=== PATIENT | male | born 1965 | race Asian ===

== ENCOUNTER 2018-08-16 17:15 | Inpatient (IN) | payer BC ==
[~2018-08-16] VITALS: Ht 157.5 cm; Wt 65.8 kg
--- NOTE | ~2018-08-16 | OP ---
PATIENT NAME: SURYA CEBALLOS MEDICAL RECORD: [id number] :61 LOCATION:D.MS [id number] ADMISSION DATE:08/16/18 SURGEON: YCNTHIA DAS MD DATE OF OPERATION: 08/25/2018 PROCEDURE: Transesophageal note. After general sedation via TIVA anesthesia, transesophageal Omniplane probe was placed down the distal esophagus and proximal stomach without difficulty. FINDINGS: No LVH. LV internal dimension is normal. Wall motion normal. EF is greater than or equal to 55%. Aortic valve is well visualized. Tricuspid with good valve excursion and no evidence of vegetation. No AI is noted. Left atrium appears normal. Left atrial appendage is well visualized with good contractility and no evidence of thrombus. Mitral valve is well visualized, this is a normal structure with no evidence of vegetation. Right-sided chambers appear normal. Tricuspid valve is normal with no evidence of vegetation. Pulmonic valve is well visualized with no evidence of vegetation. At the end of the procedure, the probe was turned posteriorly and this showed no atherosclerotic debris in the descending aorta. TRANSINT:[id number] Voice Confirmation ID: [id number] DOCUMENT ID: [id number] CYNTHIA DAS MD at 1135 CC: [id number] DICTATION DATE: 08/25/18 140 FAMILY LAW SPECIALIST: 08/25/18 1418 ADM IN [place] [id number] [place] [address]
--- NOTE | ~2018-08-16 | EC ---
PATIENT:SURYA CEBALLOS DATE OF SERVICE: 08/16/18 SEX: M MEDICAL RECORD: [id number] DATE OF : 61 LOCATION:D.MS [facility] AGE OF PATIENT: 52 ADMISSION DATE: 08/16/18 REFERRING PHYSICIAN: INTERPRETING PHYSICIAN: JENNY PEPPER MD ECHOCARDIOGRAM REPORT ECHO CHARGES 4 ECHO COMPLETE Date: 08/23/18 CLINICAL DIAGNOSIS: ASSESS FOR ENDOCARDITIS ECHOCARDIOGRAPHIC MEASUREMENTS (adult normal given) AC root (d.<3.7cm) 3.5 cm LV Septum d (<1.2 cm> 1.2 cm Valve Excursion 1.5 cm LV Septum (systole) 1.4 cm Left Atria (s.<4.0cm> 4.0 cm LVPW d(<1.2cm) 1.6 cm RV (d.<2.3cm) 3.4 cm LVPW (sytole) 1.7 cm LV diastole(<5.6CM) 5.4 cm MV E-F(>70mm/sec) cm LV systole 4.1 cm LVOT Diameter 1.7 cm MV exc.(>10mm) 1.2 cm Est.ejection fraction (50-75%) % DOPPLER: LVIT cm/sec A 101 cm/sec E 87.0 cm/sec LA cm/sec RVSP 46 mmHg LVOT 92 cm/sec AOP1/2T m/s Asc. Ao 154 cm/sec RVOT 102 cm/sec RA cm/sec PA 151 cm/sec AV Gradient Peak 9.52 mmHg AV Mean 5.17 mmHg AV Area 1.4 cm MV Gradient Peak 4.30 mmHg MV Mean 1.79 mmHg MV Area cm COMMENTS: Broommaker: Laura MC Sports Bookmaker: Naeem Yeung TAPE# PACS Pericardial Effusion N DATE OF SERVICE: 08/23/2018 FINDINGS: 1. Left ventricular chamber size is within normal limits. Left ventricular systolic function is normal. Overall ejection fraction estimated at 60%. 2. Left atrium, right atrium, right ventricular chamber sizes are within normal limits. 3. Valvular structures have normal structure and motion. 4. Doppler interrogation reveals trace mitral regurgitation, mild tricuspid regurgitation, no other valvular insufficiency or stenosis. Pulmonary systolic ECHOCARDIOGRAM REPORT [id number] SURYA CEBALLOS pressure is estimated at 46 mmHg. 5. No evidence of pericardial effusion or left ventricular thrombus. 6. No evidence of vegetative endocarditis. TRANSINT:[id number] Voice Confirmation ID: [id number] DOCUMENT ID: [id number] JENNY PEPPER MD at 0924 CC: [id number] DICTATION DATE: 08/24/18 1137 CHICKEN HANGER: 08/24/18 1159 DIS IN 08/26/18 [place] [id number] [place] [id number]
--- NOTE | ~2018-08-16 | HEMODYNAMI ---
PATIENT:SURYA CEBALLOS MEDICAL RECORD: [id number] : 61 LOCATION:D.MS Wade2234 ADMISSION DATE: 08/16/18 Generatedon:08/25/201814:15 Patient name: SURYA CEBALLOS Patient #: [id number] SSN: : 1965 Date of study: 08/25/2018 Page: Of Hemodynamic Procedure Report Patient Data Patient Demographics Procedure consent was obtained First Name: SURYA Gender: Male Last Name: LIN : 1965 Patient #: [id number] Age: 52 year(s) Race: Unknown Additional ID: [id number] Contact details Address: [place] [address] State: [place] City: [place] Zip code: [address] Past Medical History Allergies Allergen Reaction Date Comments Reported Other allergy 08/25/2018 DENNISE galindo Admission Admission Data Admission Date: 08/16/2018 Admission Time: 22:14 Admit Source: Other Room #: D.2234 Lab Results Lab Result Date: 08/25/2018 Lab Result Time: 3:55 Biochemistry Name Units Result Min Max BUN mg/dl 9 --(*---)-- 7 18 Creatinine mg/dl 0.8 --(-*--)-- 0.6 1.3 CBC Name Units Result Min Max Hematocrit % 28.7 *-(----)-- 42 54 Hemoglobin g/dl 9.8 *-(----)-- 13.5 17.5 Procedure Procedure Types Cath Procedure Diagnostic Procedure DEE Procedure Description Procedure Date Procedure Date: 08/25/2018 Procedure Start Time: 14:09 Procedure End Time: 14:10 Procedure Staff Name Function Juan Antonio Cordon MD Performing Physician Noel Jimenez RT Monitor Jaleel Rainey RT Boatswains Mate Carlos Saenz RN Nurse Allison Bennett RN Nurse Riaz Carrillo CRNA Additional personnel Taurus Stevenson Conference Reservationist Procedure Data Cath Procedure Fluoroscopy Diagnostic fluoroscopy Total fluoroscopy Time: 0 time: 0 min min Diagnostic fluoroscopy Total fluoroscopy dose: 0 dose: 0 mGy mGy Contrast Material Contrast Material Type Amount (ml) Isovue 300 0 Estimated blood loss: 0 ml Procedure Complications No complications Procedure Medications Medication Administration Route Dosage Oxygen etCO2 Nasal cannula 2 l/min Hurricaine Minier P.O. 1 Sprays Refer to Anesthesia Notes for Sedation Medications Hemodynamics Rest HGB: 9.8 (g/dl) Heart Rate: 90 (bpm) Snapshots Pre Cath Intra NCS Post Cath Vital Signs Time Heart Resp SPO2 etCO2 NIBP (mmHg) Rhythm Pain Sedation Rate (ipm) (%) (mmHg) Status Level (bpm) 13:30:05 84 18 97 0 143/80(111) NSR 0 (11) 10(A) , No pain 13:34:22 85 15 97 0 128/77(106) NSR 0 (11) 10(A) , No pain 13:38:31 88 12 98 0 123/78(100) NSR 0 (11) 10(A) , No pain 13:42:45 85 10 98 0 137/60(105) NSR 0 (11) 10(A) , No pain 13:46:57 85 17 99 38.3 134/78(111) NSR 0 (11) 10(A) , No pain 13:51:07 86 15 100 30.8 146/86(126) NSR 0 (11) 8(A) , No pain 13:55:21 86 18 100 33.8 139/82(112) NSR 0 (11) 8(A) , No pain 13:59:35 96 15 100 13.5 99/72(82) NSR 0 (11) 9(A) , No pain 14:03:41 83 20 100 0 101/60(79) NSR 0 (11) 9(A) , No pain 14:08:21 87 23 100 30.7 104/67(78) NSR 0 (11) 10(A) , No pain Medications Time Medication Route Dose Verified Delivered Reason Notes Effectiv eness by by 13:46:32 Oxygen etCO2 2 Juan Antonio Gonzalez used for Nasal l/min [facility] Heriberto Saenz RN procedure cannula 13:46:42 Hurricaine P.O. 1 Juan Antonio Gonzalez Per Minier Sprays St Heriberto Saenz RN physician 13:46:46 Refer to Juan Antonio Gonzalez Anesthesia St Heriberto Saenz RN Notes for MD Sedation Medications Procedure Log Time Note 12:58:25 Informed consent obtained and on chart 12:58:36 Admit Source: Other 12:59:36 H&P Date Dictated: 08/16/2018 Within 30 days and on chart.. 13:00:15 Lab Result : Creatinine 0.8 mg/dl 13:00:15 Lab Result : BUN 9 mg/dl 13:00:15 Lab Result : Hematocrit 28.7 % 13:00:15 Lab Result : Hemoglobin 9.8 g/dl 13:00:22 Lab results completed and on chart. 13:00:35 Time tracking: Regular hours (M-F 7:00 - 5:00) 13:00:39 Plan of Care:Hemodynamics will remain stable., Cardiac rhythm will remain stable., Comfort level will be maintained., Respiratory function will remain adequate., Patient/ family verbilizes understanding of procedure., Procedure tolerated without complication., Recovers from procedure without complications.. 13:11:36 Jaleel STONER(R) sent for patient. Start room use. 13:25:32 Patient arrived from Med/Surg to CCL 2. Patient remains on bed/stretcher for procedure. 13:25:34 Warm blankets applied, and meghann hugger turned on for patient comfort. 13:25:34 Correct patient and procedure confirmed by team. 13:25:35 ECG and BP/O2 sat monitors applied to patient. 13:28:56 Vital chart was started 13:31:25 Baseline sample Acquired. 13:31:30 Rhythm: sinus rhythm 13:31:45 Pre-procedure instructions explained to patient. 13:31:45 Pre-op teaching completed and patient verbalized understanding. 13:31:47 Family unavailable. 13:31:48 Patient NPO since Midnight. 13:32:25 Patient allergic to Other allergyadvil, ASA 13:32:28 Is the patient allergic to Iodine/contrast media? No. 13:32:30 Is patient on blood thinner?No 13:33:40 Patient diabetic? Yes. 13:34:31 If diabetic: On Metformin? No 13:34:37 Previous problem with sedation/anesthesia? No ? 13:34:38 Snore? No 13:34:39 Sleep apnea? No 13:34:40 Deviated septum? No 13:34:40 Opens mouth fully? Yes 13:34:41 Sticks out tongue? Yes 13:34:43 Airway obstruction? No ? 13:34:45 Dentures? No ? 13:35:17 IV patent on arrival in Lt subclavian with 0.9% NaCl at KVO. 13:35:34 Riaz Carrillo CRNA present and monitoring patient for TIVA. 13:40:13 Taurus Stevenson Set Up Mechanic Stamping Machines present for DEE. 13:46:32 Oxygen 2 l/min etCO2 Nasal cannula was administered by Carlos Saenz RN; used for procedure; 13:46:42 Hurricaine Minier 1 Sprays P.O. was administered by Carlos Saenz RN; Per physician; 13:46:46 Refer to Anesthesia Notes for Sedation Medications was administered by Carlos Saenz RN; ; 13:47:51 Alarms reviewed by Kulwant N. 13:47:52 Physician arrived 13:47:53 --------ALL STOP TIME OUT------ 13:47:53 Final Timeout: patient, procedure, and site verified with staff and physician. All members of the team are in agreement. 13:48:10 Physical assessment completed. ASA score P 2 - A patient with mild systemic disease as per Juan Antonio Cordon MD. 13:48:14 Sedation plan: TIVA Medication:Propofol 13:59:09 Full Disclosure recording started 13:59:09 Procedure started. 13:59:10 DEE started. 14:02:49 DEE completed. 14:03:47 Procedure ended.(Physican Out) 14:04:01 Fluoroscopy time 00.00 minutes. 14:04:03 Fluoroscopy dose: 0 mGy 14:04:03 Flurop Dose total: 0 14:04:06 Contrast amount:Isovue 300 0ml. 14:04:21 Post-procedure physical assessment completed. ASA score P 2 - A patient with mild systemic disease as per Juan Antonio Cordon MD. 14:04:30 Post procedure rhythm: unchanged. 14:04:33 Estimated blood loss: 0 ml 14:04:34 Post procedure instruction explained to patient.Patient verbalizes understanding. 14:04:34 Patient needs reinforcement of post procedure teaching. 14:04:50 Procedure and supply charges have been captured, reviewed, submitted and are correct. 14:04:52 Procedure Complication : No complications 14:08:47 Vital chart was stopped 14:08:47 See physician's report for complete and final results. 14:08:51 Report given to Med/Surg. 14:08:53 Patient transfered to Med/Surg with Stretcher. 14:10:14 Procedure ended. 14:10:14 Full Disclosure recording stopped 14:10:32 End room use (Document Last) Signature Audit [place] Stage Time Signature Unsigned Intra-Procedure 08/25/2018 Noel Jimenez 2:15:40 PM RT(R) Signatures Monitor : Noel Jimenez RT Signature : Date : Time : [address] [place] [address]
[2018-08-17 04:00] VITALS: BP 140/87
[2018-08-17 04:13] VITALS: BP 149/50; BMI 26.6
[2018-08-17 07:39] LABS: BASOPHILS 0.2 % (0-2); EOSINOPHILS 0.4 % (0-7); HEMATOCRIT 34.7 % (42.0-54.0); HEMOGLOBIN 11.8 g/dL (13.5-17.5); IMMATURE GRANULOCYTES 0.3 % (0-5); LYMPHOCYTES 5.2 % (15-50); MCH 29.6 pg (26.0-34.0); MCV 87.2 fL (80.0-100.0); MEAN PLATELET VOLUME 9.1 fL (7.4-10.4); MONOCYTES 8.8 % (2-11); NEUTROPHILS 85.1 % (40-80); PLATELET COUNT 388 10x3/uL (130-400); RBC 3.98 10x6/uL (4.20-6.10); RDW 13.3 % (11.5-14.5); WBC 15.7 10x3/uL (4.8-10.8)
[2018-08-17 07:55] LABS: ANION GAP 19.8 mmol/L (8-16); CALCIUM 8.3 mg/dL (8.5-10.1); CARBON DIOXIDE 20.3 mmol/L (21.0-32.0); CREATININE - SERUM 1.3 mg/dL (0.6-1.3); POTASSIUM - SERUM 4.1 mmol/L (3.5-5.1); VANCOMYCIN - RANDOM 14.4 ug/mL (10.0-20.0)
[2018-08-17 09:13] VITALS: BP 173/86
[2018-08-17 11:40] VITALS: BP 155/85
[2018-08-17 13:21] VITALS: BMI 26.5
[2018-08-17 16:45] VITALS: BP 142/83
[2018-08-17 18:39] LABS: APPEARANCE CLEAR (CLEAR); COLOR YELLOW (YELLOW); GLUCOSE 250 mg/dL (NEGATIVE); NITRITE NEGATIVE (NEGATIVE); PROTEIN 1+ mg/dL (NEGATIVE); SPECIFIC GRAVITY 1.015 (1.005-1.020)
[2018-08-17 18:40] LABS: BILIRUBIN NEGATIVE (NEGATIVE); KETONE SMALL mg/dL (NEGATIVE); UROBILINOGEN NORMAL (NORMAL)
[2018-08-17 18:41] LABS: BACTERIA FEW /hpf (NONE SEEN); RED CELLS - URINE 0-5 /hpf (0-5)
[2018-08-17 20:00] VITALS: BP 180/91
[2018-08-18 04:00] VITALS: BP 153/90
[2018-08-18 04:44] LABS: BASOPHILS 0.1 % (0-2); EOSINOPHILS 0.1 % (0-7); HEMATOCRIT 27.5 % (42.0-54.0); HEMOGLOBIN 9.5 g/dL (13.5-17.5); IMMATURE GRANULOCYTES 0.5 % (0-5); LYMPHOCYTES 11.3 % (15-50); MCH 29.8 pg (26.0-34.0); MCHC 34.5 g/dL (31.0-37.0); MCV 86.2 fL (80.0-100.0); MONOCYTES 7.5 % (2-11); NEUTROPHILS 80.5 % (40-80); PLATELET COUNT 370 10x3/uL (130-400); RBC 3.19 10x6/uL (4.20-6.10); RDW 13.4 % (11.5-14.5); WBC 14.9 10x3/uL (4.8-10.8)
[2018-08-18 05:01] LABS: APTT 44.4 SECONDS (22.8-39.4); INR 1.3 (0.85-1.17); PROTIME 15.8 SECONDS (11.6-15.0)
[2018-08-18 05:07] LABS: ALBUMIN 1.1 g/dL (3.4-5.0); ANION GAP 17.3 mmol/L (8-16); BILIRUBIN - TOTAL 0.54 mg/dL (0.2-1.3); CALCIUM 7.7 mg/dL (8.5-10.1); CARBON DIOXIDE 19.9 mmol/L (21.0-32.0); CREATININE - SERUM 1.3 mg/dL (0.6-1.3); POTASSIUM - SERUM 4.2 mmol/L (3.5-5.1); PROTEIN - SERUM 5.7 g/dL (6.4-8.2)
[2018-08-18 09:20] VITALS: BP 145/77
[2018-08-18 20:00] VITALS: BP 129/85
[2018-08-19 04:00] VITALS: BP 98/42
[2018-08-19 05:58] LABS: ALBUMIN 1.3 g/dL (3.4-5.0); ALKALINE PHOSPHATASE 237 U/L (46-116); BILIRUBIN - TOTAL 0.82 mg/dL (0.2-1.3); CALCIUM 8.3 mg/dL (8.5-10.1); CARBON DIOXIDE 24.7 mmol/L (21.0-32.0); CHLORIDE - SERUM 101 mmol/L (98-107); POTASSIUM - SERUM 3.7 mmol/L (3.5-5.1); SODIUM 136 mmol/L (136-145); UREA NITROGEN 14 mg/dL (7-18); eGFR NON AFRICAN AMERICAN 83 mL/min (90-120)
[2018-08-19 06:09] LABS: CALC OSMOLALITY 273 mosm/kg (275-300); GLUCOSE 112 mg/dL (74-106)
[2018-08-19 06:10] LABS: ALT (SGPT) 114 U/L (10-68)
[2018-08-19 06:14] LABS: BASOPHILS 0.1 % (0-2); HEMATOCRIT 32.8 % (42.0-54.0); HEMOGLOBIN 11.1 g/dL (13.5-17.5); IMMATURE GRANULOCYTES 0.5 % (0-5); MCH 29.5 pg (26.0-34.0); MCHC 33.8 g/dL (31.0-37.0); MCV 87.2 fL (80.0-100.0); MEAN PLATELET VOLUME 9.7 fL (7.4-10.4); MONOCYTES 9.7 % (2-11); NEUTROPHILS 82.7 % (40-80); RBC 3.76 10x6/uL (4.20-6.10); RDW 13.5 % (11.5-14.5); WBC 13.4 10x3/uL (4.8-10.8)
[2018-08-19 06:15] LABS: PLATELET COUNT 503 10x3/uL (130-400)
[2018-08-19 08:15] VITALS: BP 132/92
[2018-08-19 13:20] VITALS: BP 161/87
[2018-08-19 16:21] VITALS: BP 129/94
[2018-08-20 04:54] VITALS: BP 132/61
[2018-08-20 05:54] LABS: BASOPHILS 0.2 % (0-2); HEMATOCRIT 32.2 % (42.0-54.0); HEMOGLOBIN 11.1 g/dL (13.5-17.5); IMMATURE GRANULOCYTES 0.4 % (0-5); LYMPHOCYTES 8.5 % (15-50); MCH 29.8 pg (26.0-34.0); MCHC 34.5 g/dL (31.0-37.0); MCV 86.3 fL (80.0-100.0); MEAN PLATELET VOLUME 9.5 fL (7.4-10.4); MONOCYTES 9.8 % (2-11); NEUTROPHILS 80.1 % (40-80); PLATELET COUNT 498 10x3/uL (130-400); RBC 3.73 10x6/uL (4.20-6.10); RDW 13.4 % (11.5-14.5); WBC 10.1 10x3/uL (4.8-10.8)
[2018-08-20 06:10] LABS: ALBUMIN 1.2 g/dL (3.4-5.0); ALKALINE PHOSPHATASE 189 U/L (46-116); ALT (SGPT) 104 U/L (10-68); BILIRUBIN - TOTAL 0.53 mg/dL (0.2-1.3); CALC OSMOLALITY 273 mosm/kg (275-300); CALCIUM 8.3 mg/dL (8.5-10.1); CARBON DIOXIDE 19.6 mmol/L (21.0-32.0); CHLORIDE - SERUM 100 mmol/L (98-107); GLUCOSE 247 mg/dL (74-106); POTASSIUM - SERUM 4.1 mmol/L (3.5-5.1); PROTEIN - SERUM 6.2 g/dL (6.4-8.2); SODIUM 132 mmol/L (136-145); UREA NITROGEN 16 mg/dL (7-18); eGFR NON AFRICAN AMERICAN 83 mL/min (90-120)
[2018-08-20 08:28] VITALS: BP 149/92
[2018-08-20 12:09] VITALS: BP 142/88
[2018-08-20 15:31] VITALS: BP 138/86
[2018-08-20 21:47] VITALS: BP 151/80
[2018-08-21 06:13] VITALS: BP 162/79
[2018-08-21 06:27] LABS: BASOPHILS 0.3 % (0-2); EOSINOPHILS 1.9 % (0-7); HEMATOCRIT 32.1 % (42.0-54.0); HEMOGLOBIN 10.8 g/dL (13.5-17.5); IMMATURE GRANULOCYTES 0.7 % (0-5); LYMPHOCYTES 12.2 % (15-50); MCH 29.1 pg (26.0-34.0); MCHC 33.6 g/dL (31.0-37.0); MCV 86.5 fL (80.0-100.0); MEAN PLATELET VOLUME 9.3 fL (7.4-10.4); MONOCYTES 9.8 % (2-11); NEUTROPHILS 75.1 % (40-80); PLATELET COUNT 513 10x3/uL (130-400); RBC 3.71 10x6/uL (4.20-6.10); RDW 13.4 % (11.5-14.5)
[2018-08-21 06:29] LABS: WBC 7.4 10x3/uL (4.8-10.8)
[2018-08-21 06:47] LABS: ALBUMIN 1.1 g/dL (3.4-5.0); ALKALINE PHOSPHATASE 142 U/L (46-116); ALT (SGPT) 82 U/L (10-68); BILIRUBIN - TOTAL 0.38 mg/dL (0.2-1.3); CALC OSMOLALITY 278 mosm/kg (275-300); CALCIUM 8.2 mg/dL (8.5-10.1); CARBON DIOXIDE 25.7 mmol/L (21.0-32.0); CHLORIDE - SERUM 102 mmol/L (98-107); CREATININE - SERUM 0.8 mg/dL (0.6-1.3); GLUCOSE 175 mg/dL (74-106); POTASSIUM - SERUM 3.7 mmol/L (3.5-5.1); PROTEIN - SERUM 5.7 g/dL (6.4-8.2); SODIUM 138 mmol/L (136-145); UREA NITROGEN 11 mg/dL (7-18); eGFR NON AFRICAN AMERICAN > 90 mL/min (90-120)
[2018-08-21 08:48] VITALS: BP 171/95
[2018-08-21 15:26] VITALS: BP 142/82
[2018-08-21 22:06] VITALS: BP 167/98
[2018-08-22 04:34] VITALS: BP 164/90
[2018-08-22 06:39] LABS: BASOPHILS 0.3 % (0-2); EOSINOPHILS 1.5 % (0-7); HEMATOCRIT 28.3 % (42.0-54.0); HEMOGLOBIN 9.6 g/dL (13.5-17.5); IMMATURE GRANULOCYTES 0.8 % (0-5); LYMPHOCYTES 13.3 % (15-50); MCH 29.1 pg (26.0-34.0); MCHC 33.9 g/dL (31.0-37.0); MCV 85.8 fL (80.0-100.0); MEAN PLATELET VOLUME 8.9 fL (7.4-10.4); MONOCYTES 10.8 % (2-11); NEUTROPHILS 73.3 % (40-80); PLATELET COUNT 479 10x3/uL (130-400); RDW 13.3 % (11.5-14.5); WBC 7.3 10x3/uL (4.8-10.8)
[2018-08-22 07:10] LABS: ALBUMIN 1.2 g/dL (3.4-5.0); ALKALINE PHOSPHATASE 124 U/L (46-116); ALT (SGPT) 64 U/L (10-68); BILIRUBIN - TOTAL 0.28 mg/dL (0.2-1.3); CALC OSMOLALITY 274 mosm/kg (275-300); CALCIUM 7.7 mg/dL (8.5-10.1); CARBON DIOXIDE 25.2 mmol/L (21.0-32.0); CHLORIDE - SERUM 102 mmol/L (98-107); CREATININE - SERUM 0.8 mg/dL (0.6-1.3); GLUCOSE 194 mg/dL (74-106); POTASSIUM - SERUM 3.9 mmol/L (3.5-5.1); PROTEIN - SERUM 5.6 g/dL (6.4-8.2); SODIUM 136 mmol/L (136-145); UREA NITROGEN 8 mg/dL (7-18); eGFR NON AFRICAN AMERICAN > 90 mL/min (90-120)
[2018-08-22 08:08] VITALS: BP 140/79
[2018-08-22 16:30] VITALS: BP 132/82
[2018-08-22 20:00] VITALS: BP 170/98
[2018-08-23] VITALS: BP 179/91
[2018-08-23 04:00] VITALS: BP 151/78
[2018-08-23 05:53] LABS: BASOPHILS 0.3 % (0-2); EOSINOPHILS 1.8 % (0-7); HEMATOCRIT 28.6 % (42.0-54.0); HEMOGLOBIN 9.6 g/dL (13.5-17.5); IMMATURE GRANULOCYTES 0.9 % (0-5); LYMPHOCYTES 16.1 % (15-50); MCHC 33.6 g/dL (31.0-37.0); MCV 86.4 fL (80.0-100.0); MONOCYTES 11.3 % (2-11); NEUTROPHILS 69.6 % (40-80); PLATELET COUNT 506 10x3/uL (130-400); RBC 3.31 10x6/uL (4.20-6.10); RDW 13.3 % (11.5-14.5); WBC 6.6 10x3/uL (4.8-10.8)
[2018-08-23 06:18] LABS: ALBUMIN 1.4 g/dL (3.4-5.0); ALKALINE PHOSPHATASE 113 U/L (46-116); ALT (SGPT) 53 U/L (10-68); BILIRUBIN - TOTAL 0.26 mg/dL (0.2-1.3); CALC OSMOLALITY 275 mosm/kg (275-300); CALCIUM 8.5 mg/dL (8.5-10.1); CARBON DIOXIDE 28.8 mmol/L (21.0-32.0); CHLORIDE - SERUM 100 mmol/L (98-107); CREATININE - SERUM 0.9 mg/dL (0.6-1.3); GLUCOSE 182 mg/dL (74-106); POTASSIUM - SERUM 4.2 mmol/L (3.5-5.1); PROTEIN - SERUM 5.9 g/dL (6.4-8.2); SODIUM 136 mmol/L (136-145); UREA NITROGEN 9 mg/dL (7-18); eGFR NON AFRICAN AMERICAN > 90 mL/min (90-120)
[2018-08-23 07:42] LABS: INR 1.1 (0.85-1.17); PROTIME 13.8 SECONDS (11.6-15.0)
[2018-08-23 08:04] LABS: APTT 37.2 SECONDS (22.8-39.4)
[2018-08-23 09:39] VITALS: BP 132/87
[2018-08-23 12:48] VITALS: BP 148/89
[2018-08-23 16:48] VITALS: BP 153/67
[2018-08-23 19:05] VITALS: Ht 157.5 cm; Wt 65.8 kg
[2018-08-23 20:00] VITALS: BP 139/82
[2018-08-24 04:00] VITALS: BP 145/79
[2018-08-24 04:10] LABS: BASOPHILS 0.3 % (0-2); EOSINOPHILS 1.7 % (0-7); HEMATOCRIT 28.7 % (42.0-54.0); HEMOGLOBIN 9.8 g/dL (13.5-17.5); IMMATURE GRANULOCYTES 0.4 % (0-5); LYMPHOCYTES 12.1 % (15-50); MCH 29.3 pg (26.0-34.0); MCHC 34.1 g/dL (31.0-37.0); MCV 85.9 fL (80.0-100.0); MEAN PLATELET VOLUME 8.8 fL (7.4-10.4); MONOCYTES 9.8 % (2-11); NEUTROPHILS 75.7 % (40-80); PLATELET COUNT 513 10x3/uL (130-400); RBC 3.34 10x6/uL (4.20-6.10); RDW 13.3 % (11.5-14.5); WBC 7.3 10x3/uL (4.8-10.8)
[2018-08-24 04:33] LABS: ALBUMIN 1.5 g/dL (3.4-5.0); ALKALINE PHOSPHATASE 103 U/L (46-116); ALT (SGPT) 45 U/L (10-68); BILIRUBIN - TOTAL 0.27 mg/dL (0.2-1.3); CALC OSMOLALITY 274 mosm/kg (275-300); CALCIUM 8.4 mg/dL (8.5-10.1); CARBON DIOXIDE 29.1 mmol/L (21.0-32.0); CHLORIDE - SERUM 99 mmol/L (98-107); CREATININE - SERUM 0.8 mg/dL (0.6-1.3); GLUCOSE 174 mg/dL (74-106); POTASSIUM - SERUM 4.2 mmol/L (3.5-5.1); PROTEIN - SERUM 5.7 g/dL (6.4-8.2); SODIUM 136 mmol/L (136-145); UREA NITROGEN 9 mg/dL (7-18); eGFR NON AFRICAN AMERICAN > 90 mL/min (90-120)
[2018-08-24 08:46] VITALS: BP 161/89
[2018-08-24 10:59] VITALS: BP 125/84
[2018-08-24 16:45] VITALS: BP 152/78
[2018-08-24 22:51] VITALS: BP 139/81
[2018-08-25 06:03] LABS: BASOPHILS 0.3 % (0-2); EOSINOPHILS 1.9 % (0-7); HEMATOCRIT 30.3 % (42.0-54.0); HEMOGLOBIN 10.1 g/dL (13.5-17.5); IMMATURE GRANULOCYTES 0.6 % (0-5); LYMPHOCYTES 10.3 % (15-50); MCH 28.5 pg (26.0-34.0); MCHC 33.3 g/dL (31.0-37.0); MCV 85.6 fL (80.0-100.0); MEAN PLATELET VOLUME 8.9 fL (7.4-10.4); MONOCYTES 10.7 % (2-11); NEUTROPHILS 76.2 % (40-80); PLATELET COUNT 507 10x3/uL (130-400); RBC 3.54 10x6/uL (4.20-6.10); RDW 13.3 % (11.5-14.5); WBC 7.7 10x3/uL (4.8-10.8)
[2018-08-25 06:18] VITALS: BP 134/74
[2018-08-25 06:36] LABS: ALBUMIN 1.5 g/dL (3.4-5.0); ALKALINE PHOSPHATASE 96 U/L (46-116); BILIRUBIN - TOTAL 0.24 mg/dL (0.2-1.3); CALCIUM 8.5 mg/dL (8.5-10.1); CHLORIDE - SERUM 100 mmol/L (98-107); POTASSIUM - SERUM 4.1 mmol/L (3.5-5.1); PROTEIN - SERUM 6.5 g/dL (6.4-8.2); SODIUM 135 mmol/L (136-145); UREA NITROGEN 7 mg/dL (7-18); eGFR NON AFRICAN AMERICAN 83 mL/min (90-120)
[2018-08-25 06:38] LABS: ALT (SGPT) 32 U/L (10-68); CALC OSMOLALITY 275 mosm/kg (275-300); GLUCOSE 235 mg/dL (74-106)
[2018-08-25 08:00] VITALS: BP 134/89
[2018-08-25 12:00] VITALS: BP 131/74
[2018-08-25 18:19] VITALS: BP 128/76
[2018-08-25 21:45] VITALS: BP 137/82
[2018-08-26 05:09] VITALS: BP 126/90
[2018-08-26 06:11] LABS: BASOPHILS 0.5 % (0-2); EOSINOPHILS 1.4 % (0-7); HEMATOCRIT 33.1 % (42.0-54.0); HEMOGLOBIN 11.1 g/dL (13.5-17.5); IMMATURE GRANULOCYTES 0.7 % (0-5); LYMPHOCYTES 15.8 % (15-50); MCH 28.9 pg (26.0-34.0); MCHC 33.5 g/dL (31.0-37.0); MCV 86.2 fL (80.0-100.0); MONOCYTES 8.5 % (2-11); NEUTROPHILS 73.1 % (40-80); PLATELET COUNT 556 10x3/uL (130-400); RBC 3.84 10x6/uL (4.20-6.10); RDW 13.3 % (11.5-14.5); WBC 7.6 10x3/uL (4.8-10.8)
[2018-08-26 06:38] LABS: ALBUMIN 1.7 g/dL (3.4-5.0); ALKALINE PHOSPHATASE 101 U/L (46-116); ALT (SGPT) 34 U/L (10-68); CALC OSMOLALITY 279 mosm/kg (275-300); CALCIUM 9.1 mg/dL (8.5-10.1); CARBON DIOXIDE 29.5 mmol/L (21.0-32.0); CHLORIDE - SERUM 101 mmol/L (98-107); GLUCOSE 249 mg/dL (74-106); POTASSIUM - SERUM 3.9 mmol/L (3.5-5.1); PROTEIN - SERUM 7.5 g/dL (6.4-8.2); SODIUM 137 mmol/L (136-145); UREA NITROGEN 7 mg/dL (7-18); eGFR NON AFRICAN AMERICAN 83 mL/min (90-120)
[2018-08-26 08:14] VITALS: BP 130/73
[2018-08-26] MEDS ORDERED: FLORAJEN3 CAPS460 MG PO (10:33)
[2018-08-26] MEDS ORDERED: LISINOPRIL10 MG PO (10:33)
[2018-08-26] MEDS ORDERED: FLOMAX0.4 MG PO (10:33)
[2018-08-26] MEDS ORDERED: GLUCOPHAGE1000 MG PO (10:35)
[2018-08-26] MEDS ORDERED: GLYBURIDE5 M1 PO (10:39)
[2018-08-26 11:56] VITALS: BP 144/80
== END 2018-08-26 18:32 | disposition home health service (06) | DRG 853 ==
LOC: D.MS 17:15
PROVIDERS: Family Medicine; General Practice; Internal Medicine Nephrology; Radiology Diagnostic Radiology
PROC: 02HV33Z Insertion of Infusion Device into Superior Vena Cava, Percutaneous Approach (ICD-10-PCS; 2018-08-17)
PROC: B548ZZA Ultrasonography of Superior Vena Cava, Guidance (ICD-10-PCS; 2018-08-17)
PROC: 0T9330Z Drainage of Right Kidney Pelvis with Drainage Device, Percutaneous Approach (ICD-10-PCS; principal; 2018-08-18 12:06)
PROC: 0TP530Z Removal of Drainage Device from Kidney, Percutaneous Approach (ICD-10-PCS; 2018-08-24)
PROC: 0T933ZZ Drainage of Right Kidney Pelvis, Percutaneous Approach (ICD-10-PCS; 2018-08-24)
DX: A41.01 Sepsis due to Methicillin susceptible Staphylococcus aureus (principal); N15.1 Renal and perinephric abscess; E43 Unspecified severe protein-calorie malnutrition; N12 Tubulo-interstitial nephritis, not specified as acute or chronic; E11.65 Type 2 diabetes mellitus with hyperglycemia; Z68.26 Body mass index [BMI] 26.0-26.9, adult

== ENCOUNTER 2018-08-27 13:25 | Emergency (ER) | payer BC ==
[~2018-08-27] VITALS: Ht 157.5 cm; Wt 53.6 kg
[~2018-08-27 13:25] MED LIST: FLOMAX0.4 MG PO; FLORAJEN3 CAPS460 MG PO; GLUCOPHAGE1000 MG PO; GLYBURIDE5 M1 PO; LISINOPRIL10 MG PO
[2018-08-27 13:35] VITALS: Ht 157.5 cm; Wt 53.6 kg
[2018-08-27 15:49] VITALS: BP 137/80
== END 2018-08-27 15:50 | disposition home or self-care (01) ==
LOC: D.ER 13:25
DX: T82.898A Other specified complication of vascular prosthetic devices, implants and grafts, initial encounter (principal); E11.9 Type 2 diabetes mellitus without complications

== ENCOUNTER → 2018-09-20 10:25 | Outpatient (CLI) | payer BC ==
[2018-08-27 13:35] VITALS: BMI 21.6
== END | disposition home or self-care (01) ==
LOC: D.CT 10:25
DX: N15.1 Renal and perinephric abscess (principal)